=== PATIENT | male | born 1995 | race African-American/Black ===

== ENCOUNTER 2016-05-10 20:57 | Emergency (ER) | payer OTHER ==
[~2016-05-10] VITALS: Ht 185.4 cm; Wt 78.9 kg
[2016-05-10] MEDS ORDERED: ALLERGY25 M2 PO (22:09)
[2016-05-10] MEDS ORDERED: RISPERDAL0.5 MG PO (22:10)
[2016-05-10] MEDS ORDERED: SALINE NASAL SP45 ML BOTH NARES (22:13)
[2016-05-10] MEDS ORDERED: PROVENTIL HFA6.7 GM IH (22:14)
[2016-05-10] MEDS ORDERED: TRIAMCINOLONE A15 GM TP (22:15)
[2016-05-10] MEDS ORDERED: LAMISIL AF133 GM TP (22:15)
[2016-05-10] MEDS ORDERED: ALLERGY4 MG PO (22:19)
[2016-05-11 00:19] LABS: HEMATOCRIT 42.4 % (38.0-50.0); MCHC 33.5 G/DL (30.0-36.0); MCV 89.6 FL (86-99); MEAN PLAT.VOLUME 10.5 uM^3 (9.0-12.4); PLATELET COUNT 271 K/uL (156-360); RBC DIS.WIDTH-CV 13.1 % (11.8-14.6); RBC DIS.WIDTH-SD 42.1 % (39-53); RED BLOOD COUNT 4.73 M/uL (4.00-5.50); WHITE BLOOD COUNT 13.4 K/uL (4.1-10.2)
[2016-05-11 00:28] LABS: CHLORIDE 102 mEq/L (99-109); POTASSIUM 4.6 mEq/L (3.7-5.4); SODIUM 138 mEq/L (136-147)
[2016-05-11 00:30] LABS: GLUCOSE 95 mg/dL (70-99)
[2016-05-11 00:31] LABS: ANION GAP 10 MEQ/L (2-14)
[2016-05-11 00:33] LABS: GFR ESTIMATE (CALCULATED) > 59 mL/min/
[2016-05-11 00:34] LABS: UREA NITROGEN (BUN) 14 mg/dL (9-23)
[2016-05-11 01:18] VITALS: BP 126/78
== END 2016-05-11 01:21 | disposition short-term general hospital (02) ==
LOC: EDBD 20:57 → EME 20:57
PROVIDERS: Emergency Medicine
DX: S02.82XA Fracture of other specified skull and facial bones, left side, initial encounter for closed fracture (principal); S02.32XA Fracture of orbital floor, left side, initial encounter for closed fracture; H57.12 Ocular pain, left eye; R22.0 Localized swelling, mass and lump, head; H53.8 Other visual disturbances; H11.32 Conjunctival hemorrhage, left eye; Y04.2XXA Assault by strike against or bumped into by another person, initial encounter; Y92.149 Unspecified place in prison as the place of occurrence of the external cause; J45.909 Unspecified asthma, uncomplicated
CPT/HCPCS: 70450; 70480; 80048; 85027; 99281; 99285; J0696; J7050

== ENCOUNTER 2016-05-21 05:58 | Emergency (ER) | payer OTHER ==
[~2016-05-21] VITALS: Ht 185.4 cm; Wt 83.0 kg
[~2016-05-21 05:58] MED LIST: ALLERGY25 M2 PO; ALLERGY4 MG PO; LAMISIL AF133 GM TP; PROVENTIL HFA6.7 GM IH; RISPERDAL0.5 MG PO; SALINE NASAL SP45 ML BOTH NARES; TRIAMCINOLONE A15 GM TP
[2016-05-21 07:02] LABS: COCAINE NEGATIVE (150 ng/mL); PHENCYCLIDINE NEGATIVE (25 ng/mL); THC CANNABINOIDS NEGATIVE (50 ng/mL)
[2016-05-21 07:03] LABS: AMPHETAMINE NEGATIVE (500 ng/mL); BARBITURATES NEGATIVE (200 ng/mL); BENZODIAZEPINES NEGATIVE (150 ng/mL); INTERNAL CONTROLS VALID? YES; METHADONE NEGATIVE (200 ng/mL); METHAMPHETAMINE NEGATIVE (500 ng/mL); OPIATES (MORPHINE) NEGATIVE (100 ng/mL); OXYCODONE NEGATIVE (100 ng/mL); PROPOXYPHENE NEGATIVE (300 ng/mL); TRICYCLIC ANTIDEPRESSANTS PRESUMPTIVE POSITIVE (300 ng/mL)
[2016-05-21 07:43] LABS: POINT-OF-CARE METER ID UU14100415
[2016-05-21 08:19] VITALS: BP 132/81
== END 2016-05-21 08:30 | disposition left against medical advice (07) ==
LOC: EME → EDBD 05:58 → EME 05:58
PROVIDERS: Emergency Medicine
DX: R41.82 Altered mental status, unspecified (principal); R55 Syncope and collapse
CPT/HCPCS: 80048; 82948; 85025; 93005; 99281; 99284